=== PATIENT | female | born 1965 | race Caucasian/White ===

== ENCOUNTER → 2024-11-29 16:29 | Outpatient (REF) | payer OTHER, SELFPAY | LOC: RAD 16:29 | PROVIDERS: ATTENDING PHYSICIAN Physician Assistant; FAMILY PHYSICIAN Nurse Practitioner Family | DX: L72.9 Follicular cyst of the skin and subcutaneous tissue, unspecified (principal) | CPT/HCPCS: 76536 ==

== ENCOUNTER → 2024-12-12 14:25 | Outpatient (REF) | payer BC, SELFPAY | LOC: WDC 14:25 | PROVIDERS: ATTENDING PHYSICIAN Nurse Practitioner Family | DX: Z78.0 Asymptomatic menopausal state (principal); Z12.31 Encounter for screening mammogram for malignant neoplasm of breast | CPT/HCPCS: 77063; 77067 ==

== ENCOUNTER → 2025-05-29 17:05 | Outpatient (REF) | payer BC, SELFPAY | LOC: RAD 17:05 | PROVIDERS: ATTENDING PHYSICIAN Nurse Practitioner Family; FAMILY PHYSICIAN Nurse Practitioner Family | DX: R10.20 Pelvic and perineal pain unspecified side (principal) | CPT/HCPCS: 76830; 76856 ==